=== PATIENT | male | born 1990 | race Caucasian/White ===

== ENCOUNTER 2021-07-07 10:23 | Outpatient (CLI) | payer OTHER, SELFPAY ==
[2021-07-07 12:40] LABS: Absolute Lymphocyte Count 2.68 X10^3/uL (0.83-4.51); Absolute Neutrophil Count 4.6 X10^3/uL (2.0-7.7); Basophil# 0.05 X10^3/uL; Basophil% 0.6 % (0-1); Eosinophil# 0.16 X10^3/uL; Hematocrit 41.7 % (40-54); Hemoglobin 13.8 g/dL (13.0-16.5); Lymphocyte # 2.68 X10^3/ul (0.83-4.51); Lymphocyte % 32.8 % (19-41); Mean Corp Hgb Conc 33.1 g/dL (32-36); Mean Corpuscular Hgb 30.7 pg (27.0-32.0); Mean Corpuscular Volume 92.7 fL (80-94); Mean Platelet Vol. 10.2 fl (6.2-12.0); Monocyte# 0.67 X10^3/uL; Monocyte% 8.2 % (0-10); NRBC Flagged by Analyzer 0 % (0-5); Neutrophil # 4.57 X10^3/uL (2.7-7.7); Platelet Count 371 K/mm3 (150-450); RBC Distribution Width SD 44.3 fl (35.1-43.9); White Blood Count 8.2 K/mm3 (4.4-11.0)
[2021-07-07 13:13] LABS: ALB/GLOB Ratio 1.2 RATIO (0.9-2.4); AST(SGOT) 35 U/L (15-37); Alanine Aminotransfer ALT/SGPT 64 U/L (16-61); Alkaline Phosphatase 112 U/L (45-117); Anion Gap 8 (5-15); BUN 10 mg/dL (7-18); BUN/Creat Ratio 12.3 RATIO (10-20); Chloride 111 mmol/L (98-107); Cholesterol 289 mg/dL (200); Creatinine, Serum 0.81 mg/dL (0.70-1.30); EST Glomerular Filtration Rate 118 mL/min (>60); Est Glom Filt Rate - Afr Amer 142 mL/min (>60); Globulin 3.4 g/dL (2.2-4.2); Glucose 120 mg/dL (74-106); High Density Lipoprotein 22 mg/dL; Potassium 4.3 mmol/L (3.5-5.1); Protein, Total 7.4 g/dL (6.4-8.2); Sodium Level 140 mmol/L (136-145); Thyroid Stim Hormone (TSH) 1.07 uIU/mL (0.358-3.74); Triglycerides 651 mg/dL; Uric Acid 8.1 mg/dL (3.5-7.2)
== END 2021-07-07 23:59 | disposition home or self-care (01) ==
PROVIDERS: Visit Provider Physician Assistant
DX: L03.039 Cellulitis of unspecified toe (principal); Z13.29 Encounter for screening for other suspected endocrine disorder
CPT/HCPCS: 36415; 80053; 80061; 84443; 84550; 85025

== ENCOUNTER 2022-06-03 15:45 | Emergency (ER) | payer OTHER, SELFPAY ==
[2022-06-03 15:46] VITALS: BP 169/71; PULSE 118; RESP 18; TEMP 37.1; O2SAT 100; BMI 39.1
--- NOTE | 2022-06-03 16:10 | EDS_ITS ---
HPI <SUSAN Riggins - Last Filed: 06/03/22 17:52> History of Present Illness Chief Complaint: Fever Narrative Narrative: Patient presenting today with nausea and abdominal discomfort that he has had for the past few days. He states that 5 days ago he went to urgent care due to a bump that was on his leg and they placed him on Bactrim. He states that about half an hour after taking the Bactrim he began to feel slightly nauseous and the next day had slight abdominal discomfort. He states he has had the symptoms since, but they slightly worsened last night. He felt that he had sweats, chills, and fatigue. He took his temperature and it was 100.7 ?F at home. He has had 2-3 bouts of loose stool today. Patient has a history of appendectomy. He denies any chronic health conditions. He denies vomiting, blood in his stool, history of C. difficile, and urinary symptoms. PFSH <SUSAN Riggins - Last Filed: 06/03/22 17:52> [facility] Medical History Hyperlipidemia Hypertriglyceridemia Obesity Tobacco abuse Home Medications cephalexin 500 mg capsule 500 mg PO Q6 2 days #8 CAPSULES 06/03/22 [Rx Last Taken Unknown] ondansetron 4 mg disintegrating tablet 4 mg PO Q8H PRN PRN Nausea #10 tabs 06/03/22 [Rx Last Taken Unknown] sulfamethoxazole 800 mg-trimethoprim 160 mg tablet 1 tab PO BID 06/03/22 [History Last Taken Unknown] Allergy/AdvReac Type Severity Reaction Status Date / Time methylphenidate HCl Allergy Rash Verified 07/17/21 10:05 [From Ritalin] Family History Other Alcoholism Heart disease Surgical History History of appendectomy Social History Smoking Status: Current every day smoker tobacco type: cigarettes Tobacco: How many years used: 10 alcohol intake: current alcohol intake frequency: holidays/special occasions only substance use type: does not use what type of physical activity do you participate in: none ROS <SUSAN Riggins - Last Filed: 06/03/22 17:52> ROS ED Constitutional Constitutional ED: Reports chills and sweats; Denies fever(s) Eyes Eyes: Denies blurry vision or diplopia Cardiovascular Cardiovascular: Denies chest pain or palpitations Respiratory/Chest Respiratory/Chest: Denies cough or dyspnea Gastrointestinal Gastrointestinal: Reports abdominal pain and nausea; Denies constipation or vomiting Genitourinary Genitourinary ED: Denies dysuria, hematuria or urinary urgency Musculoskeletal Musculoskeletal: Denies arthralgias, back pain, myalgias or neck pain Integumentary Denies abscess, Abrasions or rash Neurologic Neurologic: Denies confusion, dizziness or paresthesias Psychiatric Psychiatric: Denies anxiety, depression, suicidal ideation or suicidal thoughts Allergic/Immunologic Allergic/Immunologic ED: Denies mouth swelling, tongue swelling or urticaria EXAM <SUSAN Riggins - Last Filed: 06/03/22 17:52> Physical Exam Const Vital Signs: 06/03/22 15:46 06/03/22 16:03 Temperature 98.7 F Temperature Source Temporal Pulse Rate 118 H Respiratory Rate 18 Respiratory Effort Normal Non-Labored Respiratory Pattern Normal Blood Pressure 169/71 H Blood Pressure Mean 103 Pulse Ox 100 Oxygen Delivery Method Room Air Positive well nourished, well developed and no apparent distress General Appearance ED: well developed HEENT Reports normocephalic and head/scalp atraumatic Mouth ED: Yes moist mucous membranes normal Eyes PERRL and EOMs intact bilaterally Neck full ROM and supple Chest Wall inspection of chest normal Resp normal respiratory effort and clear to auscultation bilaterally Cardio regular rate and regular rhythm GI soft to palpation, non-tender, non-distended and no masses Back/Spine normal ROM and normal to inspection Extremity normal to inspection and full ROM Neuro oriented x3, CN's II-XII intact bilaterally, moves all extremities, no focal motor deficits and no sensory deficits noted Sensorium / Orientation: awake and alert Psych mental status grossly normal and thought process normal Skin no rashes or lesions noted and no wounds <Dr. Yang Nielsen MD - Last Filed: 06/03/22 21:04> Physical Exam Const Vital Signs: 06/03/22 15:46 06/03/22 16:03 Temperature 98.7 F Temperature Source Temporal Pulse Rate 118 H Respiratory Rate 18 Respiratory Effort Normal Non-Labored Respiratory Pattern Normal Blood Pressure 169/71 H Blood Pressure Mean 103 Pulse Ox 100 Oxygen Delivery Method Room Air [facility] <SUSAN Riggins - Last Filed: 06/03/22 17:52> [facility] Narrative Medical decision making narrative: Patient presenting today with abdominal discomfort and nausea that started after he began taking Bactrim for a bump that was on his leg. I evaluated his leg and I do not see an abscess but there is a small opening in the skin where patient states the bump was located. There is no cellulitis. Patient has been given Zofran for his nausea. He is afebrile here. We will take him off the Bactrim and place him on 2 days of Keflex. He will be given a prescription for Zofran. His abdomen is soft and nontender, I do not feel that any imaging is necessary. Patient has only had 2 bouts of loose stool, I do not feel any labs are necessary. I think this is likely due to the Bactrim as his symptoms started shortly after taking Bactrim. On reexamination patient states he is feeling much better after being given Zofran. He is well-appearing and in no acute distress. Patient will be discharged home in stable condition and is comfortable with plan. <Dr. Yang Nielsen MD - Last Filed: 06/03/22 21:04> [facility] Narrative Medical decision making narrative: Patient presenting today with abdominal discomfort and nausea that started after he began taking Bactrim for a bump that was on his leg. I evaluated his leg and I do not see an abscess but there is a small opening in the skin where patient states the bump was located. There is no cellulitis. Patient has been given Zofran for his nausea. He is afebrile here. We will take him off the Bactrim and place him on 2 days of Keflex. He will be given a prescription for Zofran. His abdomen is soft and nontender, I do not feel that any imaging is necessary. Patient has only had 2 bouts of loose stool, I do not feel any labs are necessary. I think this is likely due to the Bactrim as his symptoms started shortly after taking Bactrim. On reexamination patient states he is feeling much better after being given Zofran. He is well-appearing and in no acute distress. Patient will be discharged home in stable condition and is comfortable with plan. I have personally performed a face to face assessment of the patient and have reviewed the KYM Note. I performed a substantive portion of the visit including all aspects of the following. My miller findings include: History is markable for GI symptoms which patient believes is due to the Bactrim and concern he had allergic reaction. He was placed on Bactrim because of rash in the right inguinal/groin area. He had an infected hematoma which spontaneously ruptured and drained. He has 1 more dose of Bactrim. He has no history medic fever, heart murmur, SBE or being immune suppressed. Exam is for induration of the area. There is a rash compared to the unaffected side. The area is not warm. There is no fluctuance. There is shotty inguinal adenopathy. Heart is regular. There is no murmur, gallop or rub. Rate is normal. Medical Decision Making Will discontinue the Bactrim and placed on cephalexin since this most likely represents a streptococcal infection and not a staphylococcal infection. Other additions or changes: [None] Discharge Plan Triage Chief Complaint: Fever ED Midlevel Provider: Tammy Wyman ED Provider: Yang Nielsen Dx/Rx/DC Orders Clinical Impression: Abdominal pain, Nausea Instructions: Abdominal Pain Prescriptions: New ondansetron 4 mg tablet,disintegrating 4 mg PO Q8H PRN PRN (Reason: Nausea) Qty: 10 0RF cephalexin 500 mg capsule 500 mg PO Q6 2 Days Qty: 8 0RF No Action sulfamethoxazole-trimethoprim 800-160 mg tablet 1 tab PO BID Label Comments: take 1 tablet by mouth twice a day for 5 days Primary Care Provider: Moris Baumann Referrals: Moris Buamann MD [Primary Care Provider] - 3-5 Days Activity Restrictions/Additional Instructions: Please follow-up with your PCP. Return for any worsening of symptoms. Disposition Disposition: Home, Self Care Discharge Date/Time: 06/03/22 17:28
[2022-06-03] MEDS: Ondansetron 4 MG/2 ML Vial IV (16:30)
== END 2022-06-03 17:28 | disposition home or self-care (01) ==
PROVIDERS: Emergency Provider Emergency Medicine; PCP Internal Medicine; Visit Provider Emergency Medicine
DX: R50.9 Fever, unspecified (principal); R10.9 Unspecified abdominal pain; F17.210 Nicotine dependence, cigarettes, uncomplicated; R11.0 Nausea; Z90.49 Acquired absence of other specified parts of digestive tract
CPT/HCPCS: 96374; 99282; A4216; J2405